=== PATIENT | female | born 1960 | race Caucasian/White ===

== ENCOUNTER 2018-07-26 02:50 | Emergency (ER) | payer OTHER ==
[2018-07-26] MEDS: DIPHENHYDRAMINE 50 MG INJ IV (03:47)
[2018-07-26] MEDS: METHYLPREDNISOLONE 125 MG INJ IV (03:47)
[2018-07-26] MEDS: FAMOTIDINE 20 MG INJ IV (03:47)
== END 2018-07-26 05:01 | disposition home or self-care (01) ==
LOC: FTE 02:50
DX: L50.9 Urticaria, unspecified (principal); I10 Essential (primary) hypertension
CPT/HCPCS: 96374; 96375; 99284-25

== ENCOUNTER 2018-11-15 08:12 | Emergency (ER) | payer OTHER ==
[2018-11-15] MEDS: DEXAMETHASONE 10 MG/ML 1 ML INJ IM (09:07)
[2018-11-15] MEDS: ACETAMINOPHEN 500 MG TAB PO (09:07)
== END 2018-11-15 10:21 | disposition home or self-care (01) ==
LOC: FTE 08:12
DX: B34.9 Viral infection, unspecified (principal); I10 Essential (primary) hypertension
CPT/HCPCS: 96372; 99284-25; J1100